=== PATIENT | female | born 1975 | race Hispanic/Latino ===

== ENCOUNTER 2018-02-02 14:23 | Emergency (ER) | payer BC, OTHER, SELFPAY ==
[2018-02-02] MEDS ORDERED: ONDANSETRON HCL 4 MG/2 ML VIAL ONE (15:05)
[2018-02-02 15:07] LABS: BASOPHILS % (AUTO) 0.4 % (0.0-5.0); EOSINOPHILS % (AUTO) 1.7 % (0.0-8.0); LYMPHOCYTES % (AUTO) 25.4 % (21.0-51.0); MEAN CORPUSCULAR HEMOGLOBIN 29.1 pg (27.0-33.0); MEAN CORPUSCULAR HGB CONC 32.8 g/dL (32.0-36.0); MEAN CORPUSCULAR VOLUME 88.6 fL (79-99); MONOCYTES % (AUTO) 6.7 % (3.0-13.0); NEUTROPHILS % (AUTO) 65.8 % (40.0-77.0); PLATELET COUNT (AUTO) 238 K/uL (130-400); RED BLOOD CELL COUNT(AUTO) 4.85 MIL/uL (4.00-5.50); RED CELL DISTRIBUTION WIDTH 12.8 % (11.0-15.5); WHITE BLOOD COUNT (AUTO) 9.2 K/uL (4.8-10.8)
[2018-02-02 15:17] LABS: CREATININE 0.9 mg/dL (0.5-1.5); POTASSIUM 3.6 mmol/L (3.5-5.1)
[2018-02-02 15:21] LABS: ALBUMIN 3.9 g/dL (3.5-5.0); BILIRUBIN,DIRECT 0.1 mg/dL (0.0-0.3); BILIRUBIN,TOTAL 0.3 mg/dL (0.2-1.0)
[2018-02-02 15:25] LABS: APPEARANCE,URINE Clear (CLEAR); BILIRUBIN,URINE Negative (NEGATIVE); COLOR,URINE Dark Yellow (YELLOW); GLUCOSE, URINE (UA) Negative (NEGATIVE); KETONES,URINE Negative (NEGATIVE); LEUKOCYTE ESTERASE ,URINE Negative (NEGATIVE); NITRATE,URINE Negative (NEGATIVE); OCCULT BLOOD,URINE Small (NEGATIVE); PH,URINE 6.5 (5.0-8.0); PROTEIN,URINE Negative (NEGATIVE); UROBILINOGEN,URINE 0.2 mg/dL (0.2-1.0)
[2018-02-02 15:28] LABS: HCG,QUAL RESULT NEGATIVE (NEGATIVE)
[2018-02-02 15:47] LABS: BACTERIA,URINE Few /HPF (None Seen); SQUAMOUS EPITHELIAL CELL,UR Few /HPF (0-2); WBC,URINE 0-1 /HPF (0-1)
== END 2018-02-02 16:35 | disposition home or self-care (01) ==
LOC: EDH 14:23
DX: K29.00 Acute gastritis without bleeding (principal); R31.9 Hematuria, unspecified; K21.9 Gastro-esophageal reflux disease without esophagitis; Z98.51 Tubal ligation status; Z90.710 Acquired absence of both cervix and uterus
CPT/HCPCS: 36415; 76705; 80048; 80076; 81001; 81025; 83690; 85025; 86677; 96374; 96375; 99285; J2405